=== PATIENT | female | born 1960 | race Hispanic/Latino ===

== ENCOUNTER 2021-07-13 17:57 | Observation (INO) | payer OTHER ==
[2021-07-13 18:08] VITALS: BMI 29.2
[2021-07-13] MEDS ORDERED: Ondansetron PF 4 MG/2 ML Vial IVP PRN (19:55)
[2021-07-13] MEDS ORDERED: Acetaminophen 325 MG TAB PO PRN (19:55)
[2021-07-13 20:38] LABS: Troponin I 0.168 ng/mL (< 0.028)
[2021-07-14 00:41] LABS: Troponin I 0.121 ng/mL (< 0.028)
[2021-07-14] MEDS ORDERED: Nitroglycerin 0.4 MG TAB (25 Tab Bottle) SL PRN (01:32)
[2021-07-14] MEDS ORDERED: HYDROcodone/Acetaminophen 5/325 mg Tablet PO PRN (01:32)
[2021-07-14] MEDS ORDERED: Aspirin Chewable 81 MG TAB PO SCH ×2 (01:45→09:00)
[2021-07-14] MEDS ORDERED: Enoxaparin Sodium 80 MG/0.8 ML SYRINGE SC SCH ×3 (01:45→21:00)
[2021-07-14 04:58] LABS: #Basophils 0.1 thou/uL (0.0-0.2); #Eosinphils 0.2 thou/uL (0.0-0.7); #Lymphocytes 3.8 thou/uL (1.20-3.40); #Monocytes 0.8 thou/uL (0.11-0.59); #Neutrophils 6.1 thou/uL (1.40-6.50); %Basophils 0.9 % (0.0-1.0); %Eosinophils 1.6 % (0.0-10.0); %Lymphocytes 34.9 % (21.0-51.0); %Neutrophils 55.5 % (42.0-75.0); Hemoglobin 12.7 g/dL (12.0-16.0); Mean Corpuscular HGB CONC 32.4 g/dL (32.0-36.0); Mean Corpuscular Hemoglobin 30.7 pg (27.0-31.0); Mean Corpuscular Volume 94.8 fL (78.0-98.0); Mean Platelet Volume 8.9 fL (7.4-10.4); Platelet Count 300 thou/uL (130-400); RBC Distribution Width 11.7 % (11.5-14.5); Red Blood Cell (RBC) Count 4.12 mill/uL (4.20-5.40); White Blood Cell (WBC) Count 10.9 thou/uL (4.8-10.8)
[2021-07-14 05:19] LABS: Anion Gap 12 mmol/L (10-20); BUN (Urea Nitrogen) 12 mg/dL (9.8-20.1); Calc. Creatinine Clearance 79 mL/min (70-130); Calcium 9.4 mg/dL (7.8-10.44); Carbon Dioxide 26 mmol/L (23-31); Cardiac Risk 3.5 (Less than 4.5); Chloride 106 mmol/L (98-107); Cholesterol 139 mg/dl (< 200 Desired); Glucose 104 mg/dL (80-115); HDL Cholesterol 40 mg/dL (>60 Neg Risk); LDL Cholesterol, Calculated 80 mg/dL; Sodium 140 mmol/L (136-145); Triglycerides 93 mg/dL (Less than 150)
[2021-07-14 08:48] VITALS: TEMP 98
[2021-07-14] MEDS ORDERED: Enoxaparin Sodium 40 MG/0.4 ML SYRINGE SC SCH (09:15)
[2021-07-14] MEDS ORDERED: ADENOSINE 60 MG/20 ML VIAL ONE (09:32)
[2021-07-14 16:02] VITALS: BP 141/70
== END 2021-07-14 19:40 | disposition home or self-care (01) ==
LOC: 2NO 17:57
PROVIDERS: ADMIT Internal Medicine; ATTEND Internal Medicine
DX: R07.89 Other chest pain (principal); R77.8 Other specified abnormalities of plasma proteins; R00.2 Palpitations; E78.5 Hyperlipidemia, unspecified; Z79.899 Other long term (current) drug therapy; V89.2XXA Person injured in unspecified motor-vehicle accident, traffic, initial encounter
CPT/HCPCS: 36415; 78452; 80048; 80061; 85025; 93017; 94760; 96372; A9500; G0378; J0153; J1650